=== PATIENT | male | born 1970 | race Caucasian/White ===

== ENCOUNTER 2021-11-19 22:40 | Inpatient (IN) | payer OTHER ==
[~2021-11-19] VITALS: Ht 162.6 cm; Wt 92.1 kg
[2021-11-19 23:55] VITALS: BP 137/73
[2021-11-20] VITALS: BP 137/43
[2021-11-20] MEDS ORDERED: MAG HYDROX/AL HYDROX/SIMETH 30 ML UDC PO PRN
[2021-11-20] MEDS ORDERED: Z GUARD REMEDY 4 OZ OINT TP PRN
[2021-11-20] MEDS ORDERED: ONDANSETRON HCL/PF 4 MG/2 ML VIAL IVP PRN
[2021-11-20] MEDS ORDERED: KETOROLAC TROMETHAMINE 10 MG TABLET PO PRN
[2021-11-20] MEDS ORDERED: MAGNESIUM HYDROXIDE 30 ML UDC PO PRN
[2021-11-20] MEDS: IV NS 0.9% 1,000 ML IV PRN (00:11)
[2021-11-20] MEDS: ENOXAPARIN SODIUM 40 MG/0.4 ML DISP.SYRIN SQ SCH ×2 (00:12→21:06)
[2021-11-20] MEDS ORDERED: VANCOMYCIN 1 GM VIAL ONE ×2 (01:28→01:29)
[2021-11-20] MEDS ORDERED: VANCOMYCIN 2 GM in IV D5W 500 ML IV ONE (01:30)
--- NOTE | 2021-11-20 03:09 | NUR ---
RN OPENING NOTES RECEIVED PT AWAKE, WITH SERVICE DOG VIA [place] ACCOMPANIED BY 2 instructor knitting FROM [facility] @2015 11/19/21. AOx4, ABLE TO MAKE NEEDS KNOWN. ON RA AND TOLERATING WELL. NO SOB NOTED. NO S/SX OF RESPIRATORY DISTRESS NOTED. IV ACCESS IN R HAND #22. IV IS INTACT, PATENT, AND FLUSHING WELL. SAFETY PRECAUTIONS IN PLACE: BED IN LOWEST, LOCKED POSITION, SIDERAILS UPx2, AND BRAKES ON. TABLE AND CALL LIGHT WITHIN REACH. WILL CONTINUE TO MONITOR. CONTACTED DR. LAZCANO FOR ORDERS. SUSU LINES AROUND PATIENT'S CELLULITIS PER COMMISSION SALES ASSOCIATE. Addendum: 11/20/21 at 0649 by TATYANA WALLIS RN CHARGE NURSE AND NURSING PROPERTY CLAIMS ADJUSTER AWARE OF SERVICE DOG.
[2021-11-20 05:35] LABS: BASOPHILS # (AUTO) 0.1 K/uL (0.0-0.2); BASOPHILS % (AUTO) 0.8 % (0.0-2.0); HEMATOCRIT 39 % (39-51); HEMOGLOBIN 13.1 g/dL (13.5-17.5); LYMPHOCYTES # (AUTO) 2.2 K/uL (0.8-4.8); LYMPHOCYTES % (AUTO) 14.1 % (20.0-44.0); MEAN CORPUSCULAR HGB CONC 34 g/dl (31.0-36.0); MEAN CORPUSCULAR VOLUME 92 fL (80-96); MONOCYTES # (AUTO) 0.6 K/uL (0.1-1.30); MONOCYTES % (AUTO) 3.9 % (2.0-12.0); NEUTROPHILS # (AUTO) 12.5 K/uL (1.8-8.9); NEUTROPHILS % (AUTO) 81.2 % (43.0-81.0); PLATELET COUNT (AUTO) 139 K/uL (150-450); RED BLOOD CELL COUNT(AUTO) 4.23 MIL/uL (4.5-6.0); WHITE BLOOD COUNT (AUTO) 15.5 K/uL (4.3-11.0)
[2021-11-20 06:06] LABS: CALCIUM, SERUM 8.2 mg/dL (8.5-10.1); CREATININE 0.8 mg/dL (0.6-1.3); MAGNESIUM 1.8 mg/dL (1.8-2.4); PHOSPHORUS 2.8 mg/dL (2.5-4.9); POTASSIUM 3.2 mmol/L (3.5-5.1)
[2021-11-20 06:20] LABS: THYROID STIMULATING HORMONE 1.464 uIU/mL (0.358-3.74)
--- NOTE | 2021-11-20 06:48 | NUR ---
RN CLOSING NOTES PT ASLEEP IN BED WITH SERVICE DOG, AWAKENS VIA VERBAL STIMULI. AOx4, ABLE TO MAKE NEEDS KNOWN. ON RA AND TOLERATING WELL. NO SOB NOTED. NO S/SX OF RESPIRATORY DISTRESS NOTED. IV ACCESS IN R HAND #22. IV IS INTACT, PATENT, AND FLUSHING WELL. ALL NEEDS MET. PT KEPT CLEAN AND DRY. SAFETY PRECAUTIONS IN PLACE: BED IN LOWEST, LOCKED POSITION, SIDERAILS UPx2, AND BRAKES ON. TABLE AND CALL LIGHT WITHIN REACH. WILL ENDORSE TO ONCOMING SHIFT FOR MAHENDRA.
--- NOTE | 2021-11-20 07:20 | NUR ---
RN OPENING NOTES RECEIVED PATIENT IN BED, AWAKE, VERBALLY RESPONSIVE, NO SIGNS OF ACUTE DISTRESS NOTED. WITH SERVICE DOG AT BEDSIDE. ON ROOM AIR, NO SOB NOTED, BREATHING EVEN AND UNLABORED. NO C/O PAIN AT THIS TIME. WITH IV ACCESS ON RIGHT HAND #22G, INTACT WITH IVF OF NS @75 ML/HOUR RUNNING. SAFETY MEASURES MAINTAINED, BED IN LOWEST LOCKED POSITION, SR UP X2, CALL LIGHT PLACED WITHIN EASY REACH. WILL CONTINUE TO MONITOR.
[2021-11-20] MEDS: PANTOPRAZOLE 40 MG VIAL IV SCH (08:31)
[2021-11-20] MEDS: VANCOMYCIN 1 GM in IV D5W 250 ML IV SCH ×2 (10:26→17:26)
[2021-11-20] MEDS ORDERED: POTASSIUM CHLORIDE 20 MEQ TAB.PRT.SR PO ONE (11:00)
[2021-11-20] MEDS ORDERED: POTASSIUM CHLORIDE 20 MEQ TAB.PRT.SR PO SCH (11:00)
--- NOTE | 2021-11-20 18:44 | NUR ---
RN CLOSING NOTES PATIENT IN BED, AWAKE, A/O X4, NO SIGNS OF ACUTE DISTRESS NOTED. REMAINS ON ROOM AIR, NO SOB NOTED. BREATHING EVEN AND UNLABORED. IV ACCESS ON RIGHT HAND INTACT AND PATENT, NS @ 75ML/HR RUNNING. ALL NEEDS ATTENDED TO. SERVICE DOG AT BEDSIDE. SAFETY MEASURES MAINTAINED. WILL ENDORSE TO NEXT SHIFT FOR CONTINUITY OF CARE.
[2021-11-20 20:00] VITALS: BP 109/68
[2021-11-21] MEDS ORDERED: KETOROLAC TROMETHAMINE INJ 30 MG/ML VIAL IM PRN (01:30)
[2021-11-21] MEDS: VANCOMYCIN 1 GM in IV D5W 250 ML IV SCH (03:01)
[2021-11-21] MEDS: IV NS 0.9% 1,000 ML IV PRN (05:37)
--- NOTE | 2021-11-21 06:30 | NUR ---
MS RN NOTES AWAKE & RESPONSIVE. NOT IN ANY DISTRESS. NO SOB NOTED. DENIES ANY PAIN OR DISCOMFORT AT THIS TIME. WITH IVF INFUSING WELL. MONITORED ACCORDINGLY. CALL LIGHT WITHIN REACH. BED IN LOWEST POSITION. SR UP X 3 FOR SAFETY. WILL ENDORSE TO NEXT SHIFT.
[2021-11-21 07:10] LABS: BASOPHILS % (AUTO) 0.2 % (0.0-2.0); EOSINOPHILS % (AUTO) 1.4 % (0.0-6.0); HEMATOCRIT 37 % (39-51); HEMOGLOBIN 12.9 g/dL (13.5-17.5); LYMPHOCYTES # (AUTO) 2.2 K/uL (0.8-4.8); LYMPHOCYTES % (AUTO) 29.7 % (20.0-44.0); MEAN CORPUSCULAR HGB CONC 35 g/dl (31.0-36.0); MEAN CORPUSCULAR VOLUME 90 fL (80-96); MONOCYTES # (AUTO) 0.6 K/uL (0.1-1.30); NEUTROPHILS # (AUTO) 4.4 K/uL (1.8-8.9); NEUTROPHILS % (AUTO) 60.7 % (43.0-81.0); PLATELET COUNT (AUTO) 118 K/uL (150-450); WHITE BLOOD COUNT (AUTO) 7.3 K/uL (4.3-11.0)
--- NOTE | 2021-11-21 07:25 | NUR ---
RN OPENING NOTES RECEIVED PATIENT IN BED, AWAKE, VERBALLY RESPONSIVE, NO SIGNS OF ACUTE DISTRESS NOTED. WITH SERVICE DOG AT BEDSIDE. STABLE ON ROOM AIR, NO SOB NOTED, BREATHING EVEN AND UNLABORED. NO C/O PAIN AT THIS TIME. WITH IV ACCESS ON RIGHT HAND #22G, INTACT WITH IVF OF NS @75 ML/HOUR RUNNING. SAFETY MEASURES MAINTAINED, BED IN LOWEST LOCKED POSITION, SR UP X2, CALL LIGHT PLACED WITHIN EASY REACH. WILL CONTINUE TO MONITOR.
[2021-11-21 07:45] LABS: CALCIUM, SERUM 8.3 mg/dL (8.5-10.1); CREATININE 0.7 mg/dL (0.6-1.3); MAGNESIUM 2.1 mg/dL (1.8-2.4); PHOSPHORUS 2.5 mg/dL (2.5-4.9); POTASSIUM 3.6 mmol/L (3.5-5.1)
[2021-11-21] MEDS: PANTOPRAZOLE 40 MG VIAL IV SCH (08:32)
[2021-11-21 09:52] VITALS: BP 89/55
[2021-11-21] MEDS ORDERED: CEPH500T PO (13:19)
[2021-11-21] MEDS ORDERED: VANCOMYCIN 1 GM in IV D5W 250 ML IV SCH (15:00)
--- NOTE | 2021-11-21 15:10 | NUR ---
REPLANTING MACHINE CREWMAN NOTES PATIENT DISCHARGED HOME IN STABLE CONDITION. PATIENT ALERT AND ORIENTED X4, NO SIGNS OF ACUTE RESPIRATORY DISTRESS. ALL BELONGINGS ACCOUNTED FOR, VALUABLE FORM SIGNED BY PATIENT. IV ACCESS ON RIGHT HAND REMOVED, NO BLEEDING NOTED. ARM NAME BAND REMOVED. EXIT CARE FOLDER GIVEN TO PATIENT. HEALTH TEACHINGS AND DISCHARGE INSTRUCTIONS PROVIDED TO PATIENT WITH VERBALIZATION OF UNDERSTANDING. PATIENT LEFT UNIT @ 1500 AMBULATORY, ACCOMPANIED PATIENT TO THE LOBBY, FRIEND WILL PICK HIM UP. CN AWARE OF DISCHARGE.
--- NOTE | 2021-11-21 15:55 | NUR ---
RN NOTES ADDENDUM: PATIENT REQUESTED TO CHANGE CEPHALEXIN TO CLINDAMYCIN. PATIENT STATED THAT CEPHALEXIN DOESN'T WORK FOR HIM. DR. LEWIS MADE AWARE. NEW CLINDAMYCIN ORDER RECEIVED, CALLED TO PATIENT'S PHARMACY REGARDING CHANGE OF PRESCRIPTION.
== END 2021-11-21 15:00 | disposition home or self-care (01) | DRG 383 ==
LOC: MED 23:02
PROVIDERS: ADMIT Registered Nurse; ATTEND Student in an Organized Health Care Education/Training Program
DX: L03.115 Cellulitis of right lower limb (principal); D69.6 Thrombocytopenia, unspecified; E87.1 Hypo-osmolality and hyponatremia; L03.116 Cellulitis of left lower limb; D64.9 Anemia, unspecified; E86.1 Hypovolemia; E87.6 Hypokalemia
CPT/HCPCS: 36415; 80048-TC; 80061-TC; 80202-TC; 83735-TC; 84100-TC; 84443-TC; 85025-TC; 87040-TC; 87081-TC; 97116-TC; 97530-TC; C9113; G0378; J1650; J1885; J3370; J7030; J7060